=== PATIENT | female | born 1980 | race Caucasian/White ===

== ENCOUNTER → 2024-08-17 15:11 | Outpatient (REF) | payer OTHER, SELFPAY | LOC: WDC 15:11 | PROVIDERS: ATTENDING PHYSICIAN Family Medicine | DX: Z12.31 Encounter for screening mammogram for malignant neoplasm of breast (principal) | CPT/HCPCS: 77063; 77067 ==

== ENCOUNTER → 2024-08-19 09:00 | Outpatient (REF) | payer OTHER, SELFPAY | LOC: HWRAD 09:00 | PROVIDERS: ATTENDING PHYSICIAN Family Medicine | DX: R91.1 Solitary pulmonary nodule (principal); E04.1 Nontoxic single thyroid nodule | CPT/HCPCS: 71250; 76536 ==